=== PATIENT | female | born 1970 | race Caucasian/White ===

== ENCOUNTER → 2024-04-25 | Outpatient (CLI) | payer MEDICAID | END | disposition home or self-care (01) | LOC: RAD 09:50 | PROVIDERS: ATTEND Podiatrist Foot & Ankle Surgery | DX: M19.071 Primary osteoarthritis, right ankle and foot (principal); M24.573 Contracture, unspecified ankle; M25.871 Other specified joint disorders, right ankle and foot; M25.774 Osteophyte, right foot; M25.771 Osteophyte, right ankle; M25.371 Other instability, right ankle; M25.571 Pain in right ankle and joints of right foot; M25.471 Effusion, right ankle; M79.671 Pain in right foot | CPT/HCPCS: 73700 ==